=== PATIENT | female | born 1985 | race Caucasian/White ===

== ENCOUNTER 2016-06-07 04:15 | Emergency (ER) | payer OTHER ==
[~2016-06-07] VITALS: Ht 160 cm; Wt 124.5 kg
[~2016-06-07 04:15] MED LIST: ALBUTEROL SULF8.5 GM IH; ASPIR 8181 M1 PO; AUGMENTIN875 MG PO; CELEXA20 MG PO; CHOLESTYRAMINE; CLEOCIN150 MG PO; CLINDAMYCIN HC300 MG PO; CORTISPORIN EAR10 ML LEFT EAR; COUMADIN3 MG PO; COUMADIN5 MG PO; DEPAKOTE500 MG PO; EFFEXOR XR37.5 MG PO; EFFEXOR75 MG PO; ENDOCET 5-3251 EACH PO; HEPARIN SO5000 UNITS SC; HYCODAN SYRUP480 ML PO; HYDROCODON-ACE1 EAC7 PO; IBUPROFEN800 MG PO; ILOTYCIN1 GM LEFT EYE; LEVOTHYROXINE50 MCG PO; LIDOCAINE20 MG/1 M5 PO; LOVENOX120 MG/0.8 SC; LOVENOX40 MG/0.4 SC; LYRICA50 MG PO; MORPHINE SULFAT15 M1 PO; MOTRIN600 MG PO; NAPROSYN500 MG PO; NORCO 5/3251 TABLET PO; OMEPRAZOLE20 M2 PO; OMEPRAZOLE40 M1 PO; OXYCODONE HCL5 MG PO; PAIN & FEVER500 MG PO; PEN-VEE K,VEET500 MG PO; PERCOCET 5/31 TABLET PO; PERIDEX1 ML MM; PNV-OB WITH DH1 EACH PO; PREDNISONE20 MG PO; PRILOSEC OTC20 MG PO; PROAIR HFA8.5 GM IH; TAMIFLU75 MG PO; TESSALON PERLE100 MG PO; TOPAMAX50 MG PO; TOPIRAMATE50 MG PO; ULTRACET1 TABLET PO; VOLTAREN50 MG PO; XANAX1 MG PO; ZANTAC150 MG PO; ZOFRAN ODT4 MG PO; ZOLOFT25 MG PO
[2016-06-07 04:37] LABS: HEMATOCRIT 39.7 % (36.0-46.0); MCH 25.1 PG (29.0-34.0); MCHC 31.2 G/DL (30.0-36.0); MCV 80.2 FL (83-99); MEAN PLAT.VOLUME 8.7 uM^3 (9.5-12.4); PLATELET COUNT 472 K/uL (156-360); RBC DIS.WIDTH-CV 17.7 % (11.8-14.6); RBC DIS.WIDTH-SD 51.4 % (39-53); RED BLOOD COUNT 4.95 M/uL (3.80-5.20)
[2016-06-07 04:39] LABS: ADD MIUA? YES; BILIRUBIN NEGATIVE; BLOOD NEGATIVE; COLOR YELLOW ((YELLOW)); GLUCOSE (STRIP) NEGATIVE; KETONES NEGATIVE; LEUKOCYTES LARGE; NITRITE NEGATIVE; PROTEIN (STRIP) NEGATIVE; UROBILINOGEN 0.2 MG/DL (0.2-1.0)
[2016-06-07 04:43] LABS: BACTERIA RARE /HPF; EPITHELIAL CELLS 2+ /HPF; HYALINE CASTS 0-5 /LPF; MUCUS TRACE /LPF; UCUL ADDED? NO
[2016-06-07 04:45] LABS: CHLORIDE 109 mEq/L (99-109); POTASSIUM 3.4 mEq/L (3.7-5.4); SODIUM 138 mEq/L (136-147)
[2016-06-07 04:48] LABS: GLUCOSE 96 mg/dL (70-99)
[2016-06-07 04:49] LABS: ANION GAP 9 MEQ/L (2-14)
[2016-06-07 04:50] LABS: TOTAL BILIRUBIN 0.1 mg/dL (0.0-1.0)
[2016-06-07 04:51] LABS: ALKALINE PHOSPHATASE 96 IU/L (3-129); GFR ESTIMATE (CALCULATED) > 59 mL/min/
[2016-06-07 04:52] LABS: UREA NITROGEN (BUN) 10 mg/dL (9-23)
[2016-06-07 05:00] LABS: QUANTITATIVE HCG < 4.0 MIU/ML
[2016-06-07 05:13] LABS: LIPASE 16 U/L (1.0-51.0)
[2016-06-07 05:31] LABS: INTER. NORMALIZED RATIO 1.9; PROTHROMBIN TIME 19.9 (9.2-11.2); PTT 39.5 (25-32)
[2016-06-07] MEDS ORDERED: MACROBID100 MG PO (06:10)
[2016-06-07] MEDS ORDERED: ZOFRAN8 MG PO (06:10)
[2016-06-07 06:24] VITALS: BP 133/96
== END 2016-06-07 06:25 | disposition home or self-care (01) ==
LOC: EME 04:15
DX: R10.84 Generalized abdominal pain (principal); N30.90 Cystitis, unspecified without hematuria; R05 Cough; Z98.890 Other specified postprocedural states; R10.816 Epigastric abdominal tenderness; Z87.442 Personal history of urinary calculi; Z90.49 Acquired absence of other specified parts of digestive tract; Z86.718 Personal history of other venous thrombosis and embolism; Z79.01 Long term (current) use of anticoagulants; F17.200 Nicotine dependence, unspecified, uncomplicated
CPT/HCPCS: 74177; 80053; 81003; 83690; 84702; 85027; 85610; 85730; 99281; 99285; J2405; J7030; S0028

== ENCOUNTER 2017-03-05 08:16 | Inpatient (IN) | payer OTHER ==
[~2017-03-05] VITALS: Ht 162.6 cm; Wt 128.0 kg
[~2017-03-05 08:16] MED LIST changes: +COUMADIN4 MG PO; -COUMADIN5 MG PO; +MACROBID100 MG PO; +ZOFRAN8 MG PO
[2017-03-05 10:19] LABS: HEMOGLOBIN 13.7 G/DL (11.9-15.5); MCH 24.8 PG (29.0-34.0); MCHC 31.9 G/DL (30.0-36.0); MCV 77.8 FL (83-99); PLATELET COUNT 426 K/uL (156-360); RBC DIS.WIDTH-SD 47.7 % (39-53); RED BLOOD COUNT 5.53 M/uL (3.80-5.20); WHITE BLOOD COUNT 16.9 K/uL (4.1-10.2)
[2017-03-05 10:31] LABS: ALBUMIN 4.3 g/dL (3.2-4.8); CHLORIDE 108 mEq/L (99-109); POTASSIUM 3.6 mEq/L (3.7-5.4); SODIUM 137 mEq/L (136-147)
[2017-03-05 10:34] LABS: GLUCOSE 168 mg/dL (70-99); TOTAL PROTEIN 8.3 g/dL (6.4-8.3)
[2017-03-05 10:36] LABS: TOTAL BILIRUBIN 0.4 mg/dL (0.0-1.0)
[2017-03-05 10:37] LABS: ALKALINE PHOSPHATASE 113 IU/L (3-129); CREATININE 1.1 mg/dL (0.6-1.3); GFR ESTIMATE (CALCULATED) > 59 mL/min/
[2017-03-05 10:38] LABS: UREA NITROGEN (BUN) 15 mg/dL (9-23)
[2017-03-05 10:39] LABS: AST (GOT) 18 IU/L (2-34)
[2017-03-05 10:40] LABS: ALT (GPT) 24 IU/L (3-49)
[2017-03-05 10:41] LABS: LIPASE 6 U/L (1.0-51.0)
[2017-03-05 10:46] LABS: QUANTITATIVE HCG < 4.0 MIU/ML
[2017-03-05 12:42] LABS: APPEARANCE SL.HAZY ((CLEAR)); BILIRUBIN NEGATIVE; BLOOD NEGATIVE; COLOR YELLOW ((YELLOW)); GLUCOSE (STRIP) NEGATIVE; KETONES NEGATIVE; LEUKOCYTES MODERATE; NITRITE NEGATIVE; PROTEIN (STRIP) 30; UROBILINOGEN 0.2 MG/DL (0.2-1.0)
[2017-03-05 13:02] LABS: INTER. NORMALIZED RATIO 1.6
[2017-03-05 13:04] LABS: PTT 34.3 SEC (25-37)
[2017-03-05 13:13] LABS: BACTERIA 1+ /HPF; EPITHELIAL CELLS 1+ /HPF; MUCUS NONE SEEN /LPF; RED BLOOD CELLS NONE SEEN /HPF (0-5)
[2017-03-05] MEDS ORDERED: GABAPENTIN300 MG PO (16:07)
[2017-03-05] MEDS ORDERED: ATARAX,VISTARIL50 MG PO (16:09)
[2017-03-05] MEDS ORDERED: VENLAFAXINE225 MG PO (16:10)
[2017-03-05] MEDS ORDERED: WARFARIN SODIUM2 MG PO (16:11)
[2017-03-05] MEDS ORDERED: ENDOCET 5-3251 EACH PO (16:12)
[2017-03-05] MEDS ORDERED: XANAX0.5 MG PO (16:13)
[2017-03-05] MEDS ORDERED: WARFARIN SODIUM1 MG PO (16:15)
[2017-03-05] MEDS ORDERED: BUPROPION XL300 MG PO (16:17)
[2017-03-05 18:30] VITALS: BP 160/100
[2017-03-05 19:08] VITALS: BP 153/91
[2017-03-05 20:00] VITALS: BP 158/88
[2017-03-05 20:38] LABS: INTER. NORMALIZED RATIO 1.7
[2017-03-05 20:42] LABS: PTT 53.9 SEC (25-37)
[2017-03-06] VITALS: BP 146/82
[2017-03-06 03:28] LABS: BASOPHIL (%) 0.4 % (0-1); EOSINOPHIL (%) 0.3 % (0-5); HEMATOCRIT 40.5 % (36.0-46.0); HEMOGLOBIN 12.7 G/DL (11.9-15.5); IMMATURE GRANULOCYTE (%) 0.5 % (0.0-0.7); LYMPHOCYTE (%) 13.6 % (15-42); LYMPHOCYTE COUNT 1.5 K/uL (1.0-2.8); MCH 24.8 PG (29.0-34.0); MCHC 31.4 G/DL (30.0-36.0); MCV 79.1 FL (83-99); MONOCYTE COUNT 0.6 K/uL (0-0.8); NEUTROPHIL (%) 80.2 % (45-76); NEUTROPHIL COUNT 8.8 K/uL (1.8-6.4); PLATELET COUNT 303 K/uL (156-360); RED BLOOD COUNT 5.12 M/uL (3.80-5.20)
[2017-03-06 03:39] LABS: INTER. NORMALIZED RATIO 1.8
[2017-03-06 03:41] LABS: PTT 62.1 SEC (25-37)
[2017-03-06 03:45] LABS: FASTING STATUS NONFASTING
[2017-03-06 03:48] VITALS: BP 144/89
[2017-03-06 03:57] LABS: CHLORIDE 104 mEq/L (99-109); POTASSIUM 3.5 mEq/L (3.7-5.4); SODIUM 135 mEq/L (136-147)
[2017-03-06 03:59] LABS: GLUCOSE 105 mg/dL (70-99)
[2017-03-06 04:03] LABS: CREATININE 0.9 mg/dL (0.6-1.3); GFR ESTIMATE (CALCULATED) > 59 mL/min/
[2017-03-06 04:04] LABS: UREA NITROGEN (BUN) 11 mg/dL (9-23)
[2017-03-06 04:45] LABS: HDL CHOLESTEROL 48 MG/DL (Desirable>=50); LDL CHOLESTEROL 83 mg/dL (Desirable<100); NON-HDL CHOLESTEROL 102 mg/dL (Desirable<160); TOTAL CHOLESTEROL 150 mg/dL (Desirable<200); TRIGLYCERIDES 96 MG/DL (Normal: <150)
[2017-03-06 07:45] VITALS: BP 142/74
[2017-03-06 08:22] LABS: THYROTROPIN (TSH) 2.8 MIU/L (0.4-5.5)
[2017-03-06 09:53] LABS: INTER. NORMALIZED RATIO 1.9
[2017-03-06 09:56] LABS: PTT 54.4 SEC (25-37)
[2017-03-06 11:10] VITALS: BP 128/81
[2017-03-06 15:25] VITALS: BP 141/96
[2017-03-06 18:34] LABS: PTT 64.6 SEC (25-37)
[2017-03-07 00:10] VITALS: BP 138/88
[2017-03-07 00:45] LABS: INTER. NORMALIZED RATIO 1.9
[2017-03-07 00:48] LABS: PTT 65.3 SEC (25-37)
[2017-03-07 07:20] LABS: INTER. NORMALIZED RATIO 1.9
[2017-03-07 07:23] LABS: PTT 53.1 SEC (25-37)
[2017-03-07 07:40] VITALS: BP 117/76
[2017-03-07 12:17] VITALS: BP 126/78
[2017-03-07 16:54] VITALS: BP 122/76
[2017-03-08 00:24] VITALS: BP 99/61
[2017-03-08 06:47] LABS: BASOPHIL (%) 0.5 % (0-1); BASOPHIL COUNT 0.1 K/uL (0-0.1); EOSINOPHIL (%) 3.7 % (0-5); EOSINOPHIL COUNT 0.4 K/uL (0-0.3); HEMATOCRIT 34.6 % (36.0-46.0); HEMOGLOBIN 10.8 G/DL (11.9-15.5); IMMATURE GRANULOCYTE (%) 0.5 % (0.0-0.7); LYMPHOCYTE (%) 25.9 % (15-42); LYMPHOCYTE COUNT 2.7 K/uL (1.0-2.8); MCH 24.4 PG (29.0-34.0); MCHC 31.2 G/DL (30.0-36.0); MCV 78.1 FL (83-99); MONOCYTE (%) 8.8 % (3-12); MONOCYTE COUNT 0.9 K/uL (0-0.8); NEUTROPHIL (%) 60.6 % (45-76); NEUTROPHIL COUNT 6.3 K/uL (1.8-6.4); PLATELET COUNT 222 K/uL (156-360); RBC DIS.WIDTH-CV 16.7 % (11.8-14.6); RBC DIS.WIDTH-SD 47.5 % (39-53); RED BLOOD COUNT 4.43 M/uL (3.80-5.20); WHITE BLOOD COUNT 10.4 K/uL (4.1-10.2)
[2017-03-08 06:52] LABS: INTER. NORMALIZED RATIO 1.7
[2017-03-08 06:55] LABS: PTT 58.8 SEC (25-37)
[2017-03-08 07:08] LABS: CHLORIDE 105 MEQ/L (99-109); CREATININE 0.8 MG/DL (0.6-1.3); GFR ESTIMATE (CALCULATED) > 59 mL/min/; GLUCOSE 97 mg/dL (70-99); POTASSIUM 3.8 MEQ/L (3.7-5.4); SODIUM 137 MEQ/L (136-147); UREA NITROGEN (BUN) 13 mg/dL (9-23)
[2017-03-08 07:45] VITALS: BP 108/68
[2017-03-08 17:36] VITALS: BP 100/61
[2017-03-08 23:59] VITALS: BP 112/75
[2017-03-09 06:45] LABS: INTER. NORMALIZED RATIO 1.6
[2017-03-09 06:48] LABS: PTT 62.9 SEC (25-37)
[2017-03-09 07:20] VITALS: BP 103/57
[2017-03-10 00:23] VITALS: BP 113/69
[2017-03-10 06:53] LABS: INTER. NORMALIZED RATIO 2.4
[2017-03-10 06:55] LABS: BASOPHIL (%) 0.4 % (0-1); EOSINOPHIL (%) 3.3 % (0-5); EOSINOPHIL COUNT 0.3 K/uL (0-0.3); HEMOGLOBIN 10.6 G/DL (11.9-15.5); IMMATURE GRANULOCYTE (%) 0.9 % (0.0-0.7); LYMPHOCYTE (%) 31.9 % (15-42); LYMPHOCYTE COUNT 3.3 K/uL (1.0-2.8); MCH 24.8 PG (29.0-34.0); MCHC 31.2 G/DL (30.0-36.0); MCV 79.4 FL (83-99); MONOCYTE (%) 7.6 % (3-12); MONOCYTE COUNT 0.8 K/uL (0-0.8); NEUTROPHIL (%) 55.9 % (45-76); NEUTROPHIL COUNT 5.7 K/uL (1.8-6.4); RBC DIS.WIDTH-SD 49.2 % (39-53); RED BLOOD COUNT 4.28 M/uL (3.80-5.20); WHITE BLOOD COUNT 10.2 K/uL (4.1-10.2)
[2017-03-10 06:56] LABS: PTT 64.7 SEC (25-37)
[2017-03-10 07:00] LABS: PLATELET COUNT 323 K/uL (156-360)
[2017-03-10 07:12] LABS: CHLORIDE 106 MEQ/L (99-109); CREATININE 0.8 MG/DL (0.6-1.3); GFR ESTIMATE (CALCULATED) > 59 mL/min/; GLUCOSE 105 mg/dL (70-99); POTASSIUM 3.8 MEQ/L (3.7-5.4); SODIUM 139 MEQ/L (136-147); UREA NITROGEN (BUN) 9 mg/dL (9-23)
[2017-03-10 08:08] VITALS: BP 124/76
[2017-03-10 15:49] VITALS: BP 109/68
[2017-03-11 00:09] VITALS: BP 105/63
[2017-03-11 07:26] LABS: INTER. NORMALIZED RATIO 2.9
[2017-03-11 07:30] LABS: PTT 45.2 SEC (25-37)
[2017-03-11 07:38] VITALS: BP 107/60
[2017-03-11] MEDS ORDERED: COUMADIN3 MG PO (10:53)
[2017-03-11] MEDS ORDERED: TYLENOL REGULA325 MG PO (10:55)
[2017-03-11] MEDS ORDERED: LOPRESSOR25 MG PO (10:55)
[2017-03-11] MEDS ORDERED: LOVENOX120 MG/0.8 SC (10:57)
== END 2017-03-11 12:48 | disposition home or self-care (01) | DRG 815 ==
LOC: EME 08:16 → 2EASTP 16:00 → EDOF 16:00 → ENRESERV 17:15 → 2EASTP 18:20
PROVIDERS: Family Medicine Sports Medicine; Internal Medicine; Physician Assistant
DX: D73.5 Infarction of spleen (principal); D68.62 Lupus anticoagulant syndrome; E66.01 Morbid (severe) obesity due to excess calories; Z68.42 Body mass index [BMI] 45.0-49.9, adult; E03.9 Hypothyroidism, unspecified; F32.9 Major depressive disorder, single episode, unspecified; G43.909 Migraine, unspecified, not intractable, without status migrainosus; I10 Essential (primary) hypertension; E87.6 Hypokalemia; E87.1 Hypo-osmolality and hyponatremia; M51.36 Other intervertebral disc degeneration, lumbar region; F17.210 Nicotine dependence, cigarettes, uncomplicated; N20.0 Calculus of kidney; F41.1 Generalized anxiety disorder; G62.9 Polyneuropathy, unspecified; K21.9 Gastro-esophageal reflux disease without esophagitis
CPT/HCPCS: 71046; 74177; 80048; 80053; 80061; 81003; 83690; 84443; 84702; 85025; 85027; 85610; 85730; J1170; J1885; J2270; J2405; J3010; J7030

== ENCOUNTER 2017-05-22 15:25 | Emergency (ER) | payer OTHER ==
[~2017-05-22] VITALS: Ht 160 cm; Wt 126.5 kg
[~2017-05-22 15:25] MED LIST changes: +ATARAX,VISTARIL50 MG PO; +BUPROPION XL300 MG PO; +GABAPENTIN300 MG PO; +LOPRESSOR25 MG PO; +TYLENOL REGULA325 MG PO; +VENLAFAXINE225 MG PO; +WARFARIN SODIUM1 MG PO; +WARFARIN SODIUM2 MG PO; +XANAX0.5 MG PO
[2017-05-22 18:57] LABS: BASOPHIL (%) 0.8 % (0-1); BASOPHIL COUNT 0.1 K/uL (0-0.1); EOSINOPHIL COUNT 0.8 K/uL (0-0.3); HEMOGLOBIN 11.8 G/DL (11.9-15.5); IMMATURE GRANULOCYTE (%) 0.4 % (0.0-0.7); LYMPHOCYTE COUNT 3.7 K/uL (1.0-2.8); MCH 24.5 PG (29.0-34.0); MCHC 31.9 G/DL (30.0-36.0); MCV 76.9 FL (83-99); MONOCYTE (%) 6.4 % (3-12); MONOCYTE COUNT 0.8 K/uL (0-0.8); NEUTROPHIL (%) 57.4 % (45-76); NEUTROPHIL COUNT 7.3 K/uL (1.8-6.4); PLATELET COUNT 442 K/uL (156-360); RBC DIS.WIDTH-CV 19.4 % (11.8-14.6); RBC DIS.WIDTH-SD 53.9 % (39-53); RED BLOOD COUNT 4.81 M/uL (3.80-5.20); WHITE BLOOD COUNT 12.8 K/uL (4.1-10.2)
[2017-05-22 19:03] LABS: INTER. NORMALIZED RATIO 1.1
[2017-05-22 19:05] LABS: PTT 31.3 SEC (25-37)
[2017-05-22 19:08] LABS: ALBUMIN 4.1 g/dL (3.2-4.8)
[2017-05-22 19:09] LABS: CHLORIDE 110 mEq/L (99-109); POTASSIUM 3.1 mEq/L (3.7-5.4); SODIUM 143 mEq/L (136-147)
[2017-05-22 19:11] LABS: GLUCOSE 92 mg/dL (70-99); TOTAL PROTEIN 7.1 g/dL (6.4-8.3)
[2017-05-22 19:13] LABS: TOTAL BILIRUBIN 0.3 mg/dL (0.0-1.0)
[2017-05-22 19:14] LABS: ALKALINE PHOSPHATASE 97 IU/L (3-129)
[2017-05-22 19:15] LABS: CREATININE 0.8 mg/dL (0.6-1.3); GFR ESTIMATE (CALCULATED) > 59 mL/min/
[2017-05-22 19:16] LABS: AST (GOT) 14 IU/L (2-34); DIRECT BILIRUBIN 0.2 mg/dL (0.0-0.3); UREA NITROGEN (BUN) 9 mg/dL (9-23)
[2017-05-22 19:17] LABS: ALT (GPT) 18 IU/L (3-49)
[2017-05-22 19:18] LABS: LIPASE 26 U/L (1.0-51.0)
[2017-05-22 19:22] LABS: APPEARANCE CLOUDY ((CLEAR)); BILIRUBIN NEGATIVE; BLOOD NEGATIVE; GLUCOSE (STRIP) NEGATIVE; KETONES NEGATIVE; LEUKOCYTES LARGE; NITRITE NEGATIVE; PROTEIN (STRIP) 30; SPECIFIC GRAVITY 1.021 (1.000-1.030); UROBILINOGEN 0.2 MG/DL (0.2-1.0)
[2017-05-22 19:26] LABS: QUANTITATIVE HCG < 4.0 MIU/ML
[2017-05-22 20:27] LABS: RED BLOOD CELLS RARE /HPF (0-5)
[2017-05-22 20:28] LABS: AMORPHOUS URATES CRYSTALS 2+; BACTERIA 1+ /HPF; EPITHELIAL CELLS 3+ /HPF; MUCUS 1+ /LPF
[2017-05-22 21:43] LABS: COLOR YELLOW ((YELLOW))
[2017-05-23 00:01] VITALS: BP 125/91
== END 2017-05-23 00:03 | disposition home or self-care (01) ==
LOC: EME 15:25
PROVIDERS: Physician Assistant
DX: R10.12 Left upper quadrant pain (principal); D68.8 Other specified coagulation defects; Z79.01 Long term (current) use of anticoagulants; E87.6 Hypokalemia; R06.02 Shortness of breath; K21.9 Gastro-esophageal reflux disease without esophagitis; G43.909 Migraine, unspecified, not intractable, without status migrainosus; F41.9 Anxiety disorder, unspecified; F32.9 Major depressive disorder, single episode, unspecified; Z87.442 Personal history of urinary calculi; Z90.49 Acquired absence of other specified parts of digestive tract; F17.200 Nicotine dependence, unspecified, uncomplicated
CPT/HCPCS: 71275; 74177; 80053; 81003; 82248; 83605; 83690; 84702; 85025; 85610; 85730; 93005; 99281; 99285; J3010; J7030; J7050

== ENCOUNTER 2017-06-21 20:56 | Emergency (ER) | payer OTHER ==
[~2017-06-21] VITALS: Ht 157.5 cm; Wt 124.5 kg
[2017-06-21 23:13] VITALS: BP 123/81
== END 2017-06-21 23:13 | disposition home or self-care (01) ==
LOC: RME 20:56 → EME 20:56 → RME 23:13
DX: M79.672 Pain in left foot (principal); G62.9 Polyneuropathy, unspecified
CPT/HCPCS: 73630; 99281; 99283; J1885

== ENCOUNTER → 2017-07-10 | Outpatient (CLI) | payer OTHER ==
[~2017-07-10] VITALS: Ht 157.5 cm; Wt 122.9 kg
[~2017-07-10] MED LIST changes: +NEURONTIN300 MG PO; +OXYCODONE HCL10 MG PO; +TOPAMAX100 MG PO
[2017-07-10 10:21] LABS: INTER. NORMALIZED RATIO 1.1
[2017-07-10 10:40] LABS: CHLORIDE 111 MEQ/L (99-109); CREATININE 0.7 MG/DL (0.6-1.3); GFR ESTIMATE (CALCULATED) > 59 mL/min/; GLUCOSE 130 mg/dL (70-99); POTASSIUM 3.9 MEQ/L (3.7-5.4); SODIUM 140 MEQ/L (136-147); UREA NITROGEN (BUN) 6 mg/dL (9-23)
== END | disposition home or self-care (01) ==
LOC: EKG 07-05 10:30 → AMB 09:26 → EKG 10:30
PROVIDERS: Anesthesiology
DX: I48.1 Persistent atrial fibrillation (principal); I10 Essential (primary) hypertension; Z79.01 Long term (current) use of anticoagulants; Z53.09 Procedure and treatment not carried out because of other contraindication
CPT/HCPCS: 80048; 85610; J2250; J3010

== ENCOUNTER 2017-09-19 10:46 | Emergency (ER) | payer OTHER ==
[~2017-09-19] VITALS: Ht 167.6 cm; Wt 122.5 kg
[2017-09-19 11:17] LABS: BASOPHIL (%) 0.9 % (0-1); BASOPHIL COUNT 0.1 K/uL (0-0.1); EOSINOPHIL (%) 4.6 % (0-5); EOSINOPHIL COUNT 0.6 K/uL (0-0.3); HEMATOCRIT 36.3 % (36.0-46.0); HEMOGLOBIN 11.6 G/DL (11.9-15.5); IMMATURE GRANULOCYTE (%) 0.2 % (0.0-0.7); LYMPHOCYTE (%) 26.7 % (15-42); LYMPHOCYTE COUNT 3.6 K/uL (1.0-2.8); MCH 25.3 PG (29.0-34.0); MCV 79.3 FL (83-99); MONOCYTE (%) 7.5 % (3-12); NEUTROPHIL (%) 60.1 % (45-76); NEUTROPHIL COUNT 8.1 K/uL (1.8-6.4); PLATELET COUNT 528 K/uL (156-360); RBC DIS.WIDTH-CV 17.3 % (11.8-14.6); RBC DIS.WIDTH-SD 49.9 % (39-53); RED BLOOD COUNT 4.58 M/uL (3.80-5.20); WHITE BLOOD COUNT 13.4 K/uL (4.1-10.2)
[2017-09-19 11:42] LABS: CHLORIDE 107 MEQ/L (99-109); CREATININE 0.8 MG/DL (0.6-1.3); GFR ESTIMATE (CALCULATED) > 59 mL/min/; GLUCOSE 105 mg/dL (70-99); POTASSIUM 3.8 MEQ/L (3.7-5.4); SODIUM 139 MEQ/L (136-147); UREA NITROGEN (BUN) 11 mg/dL (9-23)
[2017-09-19 14:09] VITALS: BP 148/92
== END 2017-09-19 14:10 | disposition home or self-care (01) ==
LOC: EME 10:46
PROVIDERS: Emergency Medicine
DX: S30.0XXA Contusion of lower back and pelvis, initial encounter (principal); S30.1XXA Contusion of abdominal wall, initial encounter; V49.40XA Driver injured in collision with unspecified motor vehicles in traffic accident, initial encounter; Y92.410 Unspecified street and highway as the place of occurrence of the external cause; Z79.01 Long term (current) use of anticoagulants; Z86.718 Personal history of other venous thrombosis and embolism; F17.200 Nicotine dependence, unspecified, uncomplicated
CPT/HCPCS: 70450; 71260; 72125; 72128; 72129; 72131; 72132; 74177; 80048; 81003; 85025; 99281; 99285; J1885; J2270; J7030